=== PATIENT | female | born 1945 | race Hispanic/Latino ===

== ENCOUNTER 2024-06-06 18:56 | Emergency (ER) | payer MEDICARE ==
[~2024-06-06] VITALS: Ht 154.9 cm; Wt 77.1 kg
[2024-06-06 19:21] VITALS: TEMP 99
[2024-06-06 19:42] LABS: BASOPHILS % 0.2 % (0.0-1.0); EOSINOPHILS # (AUTO) 0.2 (0.0-0.4); EOSINOPHILS % 1.3 % (0.0-6.0); HEMOGLOBIN 13.3 g/dL (12.0-16.0); LYMPHOCYTES # (AUTO) 3.1 (1.0-3.2); LYMPHOCYTES % 19.1 % (18.0-39.1); MEAN CORPUSCULAR HEMOGLOBIN 29.8 pg (28-32); MEAN CORPUSCULAR HGB CONC 30.9 g/dL (31-35); MEAN CORPUSCULAR VOLUME 96.2 fL (81-99); MONOCYTES # (AUTO) 0.9 (0.2-0.8); MONOCYTES % 5.7 % (4.4-11.3); NEUTROPHILS % 73.3 % (38.7-80.0); PLATELET COUNT 273 x10e3/uL (140-360); RED BLOOD COUNT 4.47 x10e6/uL (3.6-5.1); RED CELL DISTRIBUTION WIDTH 13.1 % (11.7-14.4); WHITE BLOOD COUNT 16.42 x10e3/uL (4.8-10.8)
[2024-06-06 20:04] LABS: ALBUMIN 3.7 g/dL (3.5-5.0); ANION GAP 14.9 mmol/L (8-16); BILIRUBIN,TOTAL 0.3 mg/dL (0.2-1.2); CALCIUM 9.2 mg/dL (8.4-10.2); CREATININE, SERUM 0.82 mg/dL (0.57-1.11); POTASSIUM 3.9 mmol/L (3.5-5.1); TOTAL PROTEIN 7.4 g/dL (6.5-8.1)
[2024-06-06] MEDS ORDERED: IOPAMIDOL 370 MG/ML 100 ML INFUS..BTL INJ ONE (20:07)
[2024-06-06 20:10] LABS: TROPONIN I 0.003 ng/mL (0-0.300)
[2024-06-06] MEDS: Morphine 4mg INJECTION 4 MG/ML INJ IV STA (20:12)
[2024-06-06] MEDS: ONDANSETRON HCL INJ 2MG/ML 2ML 2 MG/ML VIAL IV STA (20:13)
[2024-06-06] MEDS: SODIUM CHLORIDE 0.9% 1000ML 1,000 ML IV STA (20:13)
[2024-06-06 22:34] LABS: CLARITY,URINE CLEAR (CLEAR); COLOR,URINE YELLOW (YELLOW); GLUCOSE, URINE NEGATIVE (NEGATIVE); LEUKOCYTE ESTERASE ,URINE NEGATIVE (NEGATIVE); NITRITE,URINE NEGATIVE (NEGATIVE); PH,URINE 6 (5 - 7); PROTEIN,URINE DIPSTICK NEGATIVE (NEGATIVE)
[2024-06-06 22:35] LABS: BILIRUBIN,URINE NEGATIVE (NEGATIVE); KETONES,URINE NEGATIVE (NEGATIVE); URINE UROBILINOGEN 0.2 mg/dL (0.2 - 1)
[2024-06-06 22:38] LABS: WBC,URINE (MAN) 0-5 /HPF (0-5)
[2024-06-06 22:39] LABS: BACTERIA,URINE FEW /HPF; EPITHELIAL CELLS,URINE RARE /LPF; RBC,URINE 0-5 /HPF (0-5)
[2024-06-06] MEDS ORDERED: PREDNISONE20 MG PO (23:02)
[2024-06-06] MEDS ORDERED: ONDANSETRON ODT4 MG PO (23:02)
[2024-06-06] MEDS ORDERED: ULTRAM 50MG50 MG PO (23:02)
[2024-06-06] MEDS ORDERED: AMOX TR-K CLV1 EAC2 PO (23:02)
[2024-06-06 23:05] VITALS: PULSE 68; RESP 16; O2SAT 99
== END 2024-06-06 23:22 | disposition home or self-care (01) ==
LOC: ER 19:04
DX: R10.32 Left lower quadrant pain (principal); K52.9 Noninfective gastroenteritis and colitis, unspecified; R11.2 Nausea with vomiting, unspecified; K76.0 Fatty (change of) liver, not elsewhere classified; R91.8 Other nonspecific abnormal finding of lung field
CPT/HCPCS: 36415; 74177; 80053; 81001; 82550; 83605; 83690; 84484; 85025; 93005; 99283; J2270; J2405; J7030; Q9967